=== PATIENT | female | born 1945 | race Hispanic/Latino ===

== ENCOUNTER 2019-05-04 06:44 | Emergency (ER) | payer MEDICARE ==
[~2019-05-04] VITALS: Ht 149.9 cm; Wt 72.1 kg
[~2019-05-04 06:44] MED LIST: ASPIR 8181 MG; ATELVIA35 MG PO; ATORVASTATIN CA20 MG PO; CEFDINIR300 MG PO; FAMOTIDINE20 MG PO; FLAGYL500 MG PO; LANTUS100 UNITS/ SQ; LOVENOX40 MG/0.4 SC; METOCLOPRAMIDE10 MG PO; NORCO 7.5-3251 EACH PO; ULTRAM 50MG50 MG PO; ULTRAM50 MG PO; VITAMIN D250000 UNIT PO; Z.0.DIOVAN160 MG PO; Z.0.GLIPIZIDE10 MG PO; Z.0.NEXIUM40 MG PO; Z.0.PLAQUENIL200 MG PO; [UNRECOGNIZED DRUG - OTHER] PO
--- OUTSIDE RECORDS SUMMARY | 2019-05-04 06:48 | XMS REPORT ---
Author Author [facility] Address Unknown Phone Unavailable Care Team Providers Care Servicing Manager Name Role Phone Brendon JENSEN Unavailable Unavailable Problems This patient has no known problems. Allergies, Adverse Reactions, Alerts This patient has no known allergies or adverse reactions. Medications This patient has no known medications. Results Test Description Test Time Test Comments Text Results Atomic Results Result Comments CHEST SINGLE (PORTABLE) [place] [address] Patient Name: JIHAN DENNIS MR #: [id number] : 1945 Age/Sex: 72/F Req #: [id number] Adm Physician: Ordered by: MARI MAYES PICKER OPERATOR Report #: [id number] Location: ER Room/Bed: Procedure: [id number] DX/CHEST SINGLE (PORTABLE) Exam Date: 09/15/17 Exam Time: 1500 REPORT STATUS: Signed PROCEDURE: CHEST SINGLE (PORTABLE) COMPARISON: 05/10/2016. INDICATIONS: NAUSEA, STOMACH PAIN TODAY FINDINGS: Lungs are well- inflated. No focal consolidation, pleural effusion, or pneumothorax. Cardiomediastinal contour and pulmonary vasculature are within normal limits for portable, AP technique. No acute osseous abnormality. Bilateral acromioclavicular degenerative joint disease. CONCLUSION: No acute cardiopulmonary abnormality. Dictated by: Pastor Abbott M.D. on 09/15/2017 at 15:20 Electronically approved by: Pastor Abbott M.D. on 09/15/2017 at 15:20 Dictated By: PASTOR ABBOTT MD 1520 Transcribed By: CHEYENNE on 09/15/17 1520 COPY TO: MARI MAYES NP CT ABDOMEN/PELVIS WO [place] [address] Patient Name: JIHAN DENNIS MR #: [id number] : 1945 Age/Sex: 72/F Req #: [id number] Adm Physician: Ordered by: MARI MAYES NP Report #: [id number] Location: ER Room/Bed: Procedure: [id number] CT/CT ABDOMEN/PELVIS WO Exam Date: 09/15/17 Exam Time: 1500 REPORT STATUS: Signed PROCEDURE: CT ABDOMEN AND PELVIS WITHOUT CONTRAST TECHNIQUE: The abdomen and pelvis were scanned utilizing a multidetector helical scanner from the diaphragm to the lesser trochanter after the oral administration of Gastroview. No intravenous contrast was administered per referring physician request. Coronal and sagittal multiplanar reformations were obtained. COMPARISON: CT abdomen and pelvis with contrast 05/10/2016 INDICATIONS: stomach pain, nausea, vomitting FINDINGS: ABSENCE OF INTRAVENOUS CONTRAST DECREASES SENSITIVITY FOR DETECTION OF FOCAL LESIONS AND VASCULAR PATHOLOGY. LOWER THORAX: 3 mm juxtapleural nodule in the right middle lobe is unchanged dating to 05/10/2016. Otherwise unremarkable. Coronary artery calcifications.. HEPATOBILIARY: Calcified granuloma in segment 4A near the dome. Otherwise no focal hepatic lesion. No intrahepatic biliary ductal dilatation. Status post cholecystectomy. SPLEEN: No splenomegaly. PANCREAS: No focal masses or ductal dilatation. ADRENALS: No adrenal nodules. KIDNEYS/URETERS: No hydronephrosis, stones, or solid mass lesions. PELVIC ORGANS/BLADDER: Urinary bladder is unremarkable. No adnexal mass. PERITONEUM / RETROPERITONEUM: No free air or fluid. LYMPH NODES: No pelvic side wall, retroperitoneal, or mesenteric lymphadenopathy. VESSELS: Atherosclerotic calcification of the abdominal aorta, branch vessels, and iliac arterial systems without aneurysmal dilatation. Otherwise limited evaluation in the absence of intravenous contrast. GI TRACT: The large bowel shows no evidence of distention or wall thickening. Gas and fecal material is noted throughout. The appendix is not identified and may have been removed. Mild wall thickening of the gastric antrum is again noted, similar to that seen on 05/10/2016. There is no small bowel dilatation to suggest obstruction. BONES AND SOFT TISSUES: Postsurgical changes of the anterior bowel wall. No focal soft tissue abnormalities otherwise. Multilevel degenerative disc changes of the lumbar spine. Degenerative joint disease of the hips. IMPRESSION: Mild thickening of the gastric antral wall is similar to that noted on 05/10/2016 and may indicate gastritis in the correct clinical setting. Otherwise no acute intra-abdominal or pelvic CT abnormality. Atherosclerotic vascular disease. Dictated by: Pastor Abbott M.D. on 09/15/2017 at 15:37 Electronically approved by: Pastor Abbott M.D. on 09/15/2017 at 15:37 Dictated By: PASTOR ABBOTT MD 1537 Transcribed By: CHEYENNE on 09/15/17 1537 COPY TO: MARI MAYES NP
[2019-05-04] MEDS ORDERED: KETOROLAC TROMETHAMINE 60 MG/2 ML VIAL IM ONE (07:30)
[2019-05-04] MEDS ORDERED: DIAZEPAM 5 MG TAB PO ONE (07:30)
--- NOTE | 2019-05-04 09:25 | Diagnostic Imaging Report ---
Exam: Head CT without contrast History: Headache Comparison studies: None Technique: Axial images were obtained from the skull base to the vertex. Coronal and sagittal images reconstructed from the axial data. Dose modulation, iterative reconstruction, and/or weight based adjustment of the mA/kV was utilized to reduce the radiation dose to as low as reasonably achievable. Radiation dose: Total DLP: 921 mGy*cm. Estimated effective dose: DLP x 0.015 Intravenous contrast: None Findings: Scalp: No abnormalities. Bones: No fractures, blastic or lytic lesions. Brain sulci: Appropriate for age. Ventricles: Mild compensatory dilatation.. No hydrocephalus. Extra-axial spaces: No masses, no fluid collection. Parenchyma: No mass, acute hemorrhage or acute cortical vascular insults. A few scattered hypodensities in the supratentorial white matter are nonspecific but most compatible with chronic small vessel ischemic changes. Sellar/suprasellar region: No abnormalities. Craniocervical junction: Patent foramen magnum. No Chiari one malformation. Incidental findings: Lens replacement for previous cataract surgery. Atherosclerotic calcifications in the carotid siphons. IMPRESSION: 1. No acute intracranial abnormalities. 2. Mild chronic microvascular ischemic changes. Signed by: Dr. Yoshi Robbins M.D. on 05/04/2019 9:22 AM
[2019-05-04 09:45] VITALS: BP 114/50
== END 2019-05-04 09:52 | disposition home or self-care (01) ==
LOC: ER 06:44
DX: G44.211 Episodic tension-type headache, intractable (principal); E11.9 Type 2 diabetes mellitus without complications; E78.5 Hyperlipidemia, unspecified; K21.9 Gastro-esophageal reflux disease without esophagitis
CPT/HCPCS: 36415; 70450; 82948; 93005; 99284; J1885

== ENCOUNTER 2019-08-22 21:03 | Emergency (ER) | payer MEDICARE ==
[~2019-08-22] VITALS: Ht 149.9 cm; Wt 72.1 kg
[2019-08-22] MEDS ORDERED: SODIUM CHLORIDE 0.9% 1000ML 1,000 ML IV STA (21:37)
[2019-08-22] MEDS ORDERED: KETOROLAC TROMETHAMINE 30 MG/ML VIAL IV STA (21:37)
[2019-08-22] MEDS ORDERED: DIAZEPAM 5 MG TAB PO ONE (21:45)
[2019-08-22 21:50] LABS: BASOPHILS % 0.3 % (0.0-1.0); EOSINOPHILS # (AUTO) 0.1 (0.0-0.4); EOSINOPHILS % 1.2 % (0.0-6.0); HEMOGLOBIN 13.5 g/dL (12.0-16.0); LYMPHOCYTES # (AUTO) 2.5 (1.0-3.2); LYMPHOCYTES % 38.2 % (18.0-39.1); MEAN CORPUSCULAR HEMOGLOBIN 31.6 pg (28-32); MEAN CORPUSCULAR HGB CONC 33.8 g/dL (31-35); MEAN CORPUSCULAR VOLUME 93.7 fL (81-99); MONOCYTES # (AUTO) 0.5 (0.2-0.8); MONOCYTES % 7.7 % (4.4-11.3); NEUTROPHILS # (AUTO) 3.4 (2.1-6.9); NEUTROPHILS % 52.3 % (38.7-80.0); PLATELET COUNT 213 x10e3/uL (140-360); RED BLOOD COUNT 4.27 x10e6/uL (3.6-5.1); RED CELL DISTRIBUTION WIDTH 12.4 % (11.7-14.4)
[2019-08-22 21:58] LABS: INR 0.88; PROTHROMBIN TIME 12.4 seconds (11.9-14.5)
[2019-08-22 21:59] LABS: PARTIAL THROMBOPLASTIN TIME 28.1 seconds (23.8-35.5)
[2019-08-22 22:08] LABS: CLARITY,URINE CLEAR (CLEAR); COLOR,URINE YELLOW (YELLOW)
[2019-08-22 22:09] LABS: BACTERIA,URINE MODERATE /HPF; BILIRUBIN,URINE NEGATIVE (NEGATIVE); KETONES,URINE NEGATIVE (NEGATIVE); LEUKOCYTE ESTERASE ,URINE TRACE (NEGATIVE); NITRITE,URINE NEGATIVE (NEGATIVE); PROTEIN,URINE DIPSTICK NEGATIVE (NEGATIVE); URINE UROBILINOGEN 0.2 mg/dL (0.2 - 1); WBC,URINE (MAN) 0-5 /HPF (0-5)
[2019-08-22 22:09] LABS: ALBUMIN/GLOBULIN RATIO 1.2 (0.8-2.0); ANION GAP 11.8 mmol/L (8-16); CALCIUM 9.6 mg/dL (8.4-10.2); CREATININE, SERUM 0.94 mg/dL (0.57-1.11); POTASSIUM 3.8 mmol/L (3.5-5.1)
[2019-08-22 22:10] LABS: EPITHELIAL CELLS,URINE FEW /LPF
[2019-08-22 22:43] VITALS: BP 152/61
== END 2019-08-22 22:48 | disposition home or self-care (01) ==
LOC: ER 21:03
DX: G44.211 Episodic tension-type headache, intractable (principal); R42 Dizziness and giddiness
CPT/HCPCS: 36415; 80053; 81001; 82550; 82553; 84484; 85025; 85610; 85730; 87086; 93005; 96374; 99283; J1885; J7030

== ENCOUNTER 2020-05-19 10:09 | Emergency (ER) | payer MEDICARE ==
[~2020-05-19] VITALS: Ht 149.9 cm; Wt 72.1 kg
[2020-05-19 10:48] LABS: BASOPHILS % 0.2 % (0.0-1.0); EOSINOPHILS % 0.2 % (0.0-6.0); HEMATOCRIT 34.9 % (34.2-44.1); HEMOGLOBIN 11.5 g/dL (12.0-16.0); LYMPHOCYTES # (AUTO) 0.7 (1.0-3.2); LYMPHOCYTES % 12.5 % (18.0-39.1); MEAN CORPUSCULAR HEMOGLOBIN 30.4 pg (28-32); MEAN CORPUSCULAR VOLUME 92.3 fL (81-99); MONOCYTES # (AUTO) 0.4 (0.2-0.8); MONOCYTES % 6.8 % (4.4-11.3); NEUTROPHILS # (AUTO) 4.7 (2.1-6.9); NEUTROPHILS % 79.6 % (38.7-80.0); PLATELET COUNT 246 x10e3/uL (140-360); RED BLOOD COUNT 3.78 x10e6/uL (3.6-5.1); RED CELL DISTRIBUTION WIDTH 12.2 % (11.7-14.4)
[2020-05-19 10:56] LABS: CLARITY,URINE CLEAR (CLEAR); COLOR,URINE YELLOW (YELLOW); LEUKOCYTE ESTERASE ,URINE TRACE (NEGATIVE); NITRITE,URINE NEGATIVE (NEGATIVE); PROTEIN,URINE DIPSTICK NEGATIVE (NEGATIVE)
[2020-05-19 10:57] LABS: BILIRUBIN,URINE NEGATIVE (NEGATIVE); KETONES,URINE NEGATIVE (NEGATIVE); URINE UROBILINOGEN 2 mg/dL (0.2 - 1)
--- NOTE | 2020-05-19 11:02 | Emergency Department Note ---
History of Present Illnes History of Present Illness Chief Complaint: General Medicine Complaints History of Present Illness This is a 75 year old female arrives to the ED with complaints of dizziness for several weeks. Patient states she feels unsteady on her feet. Patient states the symptoms happen from time to time. 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 Any updates have been documented here. Past Medical History Recent Fever: No Clinical Suspicion of Infectio: No New/Unexplained Change in Ment: No Past Medical History: Diabetes, GERD, Hyperlipedemia Other Medical History: GERD Past Surgical History: Cholecysctectomy, Appendectomy Other Surgery: HERNIA Other Last Tetanus: UNKNOWN Review of Systems Review of Systems Constitutional: Reports as per HPI, Reports weakness EENTM: Reports no symptoms Cardiovascular: Reports no symptoms Respiratory: Reports no symptoms Gastrointestinal: Reports no symptoms Genitourinary: Reports no symptoms Musculoskeletal: Reports no symptoms Integumentary: Reports no symptoms Neurological: Reports no symptoms Psychological: Reports no symptoms Endocrine: Reports no symptoms Hematological/Lymphatic: Reports no symptoms Physical Exam Related Data Allergies: Coded Allergies: No Known Allergies (Unverified , 09/15/17) Triage Vital Signs Vital Signs Date Time Temp Pulse Resp B/P (MAP) Pulse Ox O2 Delivery O2 Flow Rate FiO2 05/19/20 10:14 98.4 77 18 159/58 98 Room Air Vital signs reviewed: Yes Physical Exam CONSTITUTIONAL Constitutional: Present well-developed, Present well-nourished HENT HENT: Present normocephalic, Present atraumatic, Present oropharynx clear/moist, Present nose normal HENT L/R: Present left ext ear normal, Present right ext ear normal EYES Eyes: Reports PERRL, Reports conjunctivae normal NECK Neck: Present ROM normal PULMONARY Pulmonary: Present effort normal, Present breath sounds normal CARDIOVASCULAR Cardiovascular: Present regular rhythm, Present heart sounds normal, Present capillary refill normal, Present normal rate GASTROINTESTINAL Abdominal: Present soft, Present nontender, Present bowel sounds normal GENITOURINARY Genitourinary: Present exam deferred SKIN Skin: Present warm, Present dry MUSCULOSKELETAL Musculoskeletal: Present ROM normal NEUROLOGICAL Neurological: Present alert, Present oriented x 3, Present no gross motor or sensory deficits PSYCHOLOGICAL Psychological: Present mood/affect normal, Present judgement normal Results Laboratory Lab results reviewed: Yes Laboratory comments Laboratory Tests Test 05/19/20 10:35 05/19/20 10:21 White Blood Count 5.84 x10e3/uL (4.8-10.8) Red Blood Count 3.78 x10e6/uL (3.6-5.1) Hemoglobin 11.5 g/dL (12.0-16.0) Hematocrit 34.9 % (34.2-44.1) Mean Corpuscular Volume 92.3 fL (81-99) Mean Corpuscular Hemoglobin 30.4 pg (28-32) Mean Corpuscular Hemoglobin Concent 33.0 g/dL (31-35) Red Cell Distribution Width 12.2 % (11.7-14.4) Platelet Count 246 x10e3/uL (140-360) Neutrophils (%) (Auto) 79.6 % (38.7-80.0) Lymphocytes (%) (Auto) 12.5 % (18.0-39.1) Monocytes (%) (Auto) 6.8 % (4.4-11.3) Eosinophils (%) (Auto) 0.2 % (0.0-6.0) Basophils (%) (Auto) 0.2 % (0.0-1.0) Neutrophils # (Auto) 4.7 (2.1-6.9) Lymphocytes # (Auto) 0.7 (1.0-3.2) Monocytes # (Auto) 0.4 (0.2-0.8) Eosinophils # (Auto) 0.0 (0.0-0.4) Basophils # (Auto) 0.0 (0.0-0.1) Absolute Immature Granulocyte (auto 0.04 x10e3/uL (0-0.1) Sodium Level 139 mmol/L (136-145) Potassium Level 4.2 mmol/L (3.5-5.1) Chloride Level 105 mmol/L (98-107) Carbon Dioxide Level 23 mmol/L (22-29) Anion Gap 15.2 mmol/L (8-16) Blood Urea Nitrogen 12 mg/dL (7-26) Creatinine 0.72 mg/dL (0.57-1.11) Estimat Glomerular Filtration Rate > 60 ML/MIN (60-) BUN/Creatinine Ratio 17 (6-25) Glucose Level 138 mg/dL (74-118) Calcium Level 8.8 mg/dL (8.4-10.2) Total Bilirubin 0.5 mg/dL (0.2-1.2) Aspartate Amino Transf (AST/SGOT) 21 IU/L (5-34) Alanine Aminotransferase (ALT/SGPT) 21 IU/L (0-55) Alkaline Phosphatase 61 IU/L (40-150) Creatine Kinase 75 IU/L (29-168) Creatine Kinase MB 1.10 ng/mL (0-5.0) Troponin I 0.004 ng/mL (0-0.300) Total Protein 7.3 g/dL (6.5-8.1) Albumin 2.7 g/dL (3.5-5.0) Globulin 4.6 g/dL (2.3-3.5) Albumin/Globulin Ratio 0.6 (0.8-2.0) Urine Color Yellow (YELLOW) Urine Clarity Clear (CLEAR) Urine pH 7 (5 - 7) Urine Specific [place] 1.015 (1.010-1.025) Urine Protein Negative (NEGATIVE) Urine Glucose (UA) Negative (NEGATIVE) Urine Ketones Negative (NEGATIVE) Urine Blood Negative (NEGATIVE) Urine Nitrite Negative (NEGATIVE) Urine Bilirubin Negative (NEGATIVE) Urine Urobilinogen 2 mg/dL (0.2 - 1) Urine Leukocyte Esterase Trace (NEGATIVE) Urine RBC 0-5 /HPF (0-5) Urine WBC 11-20 /HPF (0-5) Urine Epithelial Cells Moderate /LPF (NONE) Urine Bacteria Moderate /HPF (NONE) Imaging Imaging results reviewed: Yes Impressions IMPRESSION: Head CT: 1. No acute intracranial abnormalities. 2. Mild chronic microvascular ischemic changes. 3. No changes from the prior head CT of 05/04/2019. Intracranial CTA: 1. No major intracranial arterial branch occlusion or stenosis. 2. Calcified atherosclerosis in the carotid siphons without significant stenosis. Signed by: Dr. Yoshi Robbins M.D. on 05/19/2020 12:31 PM IMPRESSION: Bibasilar predominantly peripheral hazy opacities can be seen with viral pneumonia. Assessment & Plan Medical Decision Making MDM 75-year-old well-appearing female arrived to the ED with complaints of dizziness and generalized malaise. Patient received a CT angiogram of her brain to ensure there is no posterior cerebellar infarct. Patient is ambulatory with steady gait. CTA normal. Patient's chest x-ray concerning for bilateral lower lobe opacities that may be pneumonia, in the setting of the Covid19 pandemic patient is a high suspicion for Covid 19. In the light of the Covid pandemic, disaster medicine care was given- Patient's imaging reviewed,- chest x-ray shows questionable patchy airspace opacities . Patient clinically appears well, outpatient pulmonary follow-up given. The red flags for return to emergency department given. Patient understands the emergency department is open at all times to serve his needs as well as the needs of the community and given that he requires no supplemental oxygen and is speaking in full sentences with no distress he is stable to go home and quarantine. Assessment & Plan Final Impression: (1) COVID-19 (2) Dizziness Depart Disposition: HOME, SELF-CARE Last Vital Signs Date Time Temp Pulse Resp B/P (MAP) Pulse Ox O2 Delivery O2 Flow Rate FiO2 05/19/20 10:14 98.4 77 18 159/58 98 Room Air Home Meds Reported Medications Tramadol Hcl (ULTRAM) 50 Mg Tablet, 50 MG PO Q6H PRN for ABDOMINAL PAIN, #12 TAB 05/23/16 Tramadol Hcl* (ULTRAM 50MG*) 50 Mg Tab, 50 MG PO, TAB 02/29/16 Insulin Glargine (LANTUS) 100 Units/Ml Ml, 8 UNIT SQ AM 11/23/14 Insulin Glargine (LANTUS) 100 Units/Ml Ml, 15 UNIT SQ PM 11/23/14 Glipizide (Glipizide) 10 Mg Tablet, 10 MG PO BID HOLD X 48 HRS 04/02/12 LAURYN MAYFIELD DO May 19, 2020 11:02
[2020-05-19 11:07] LABS: BACTERIA,URINE MODERATE /HPF; EPITHELIAL CELLS,URINE MODERATE /LPF; RBC,URINE 0-5 /HPF (0-5)
[2020-05-19 11:11] LABS: ALANINE AMINOTRANSFERASE 21 IU/L (0-55); ALBUMIN 2.7 g/dL (3.5-5.0); ALBUMIN/GLOBULIN RATIO 0.6 (0.8-2.0); ALKALINE PHOSPHATASE 61 IU/L (40-150); ANION GAP 15.2 mmol/L (8-16); BLOOD UREA NITROGEN 12 mg/dL (7-26); BUN/CREATININE RATIO 17 (6-25); CALCIUM 8.8 mg/dL (8.4-10.2); CARBON DIOXIDE 23 mmol/L (22-29); CHLORIDE 105 mmol/L (98-107); CREATINE KINASE 75 IU/L (29-168); CREATININE, SERUM 0.72 mg/dL (0.57-1.11); EST GLOMERULAR FILTRATION RATE > 60 ML/MIN (60-); GLUCOSE 138 mg/dL (74-118); POTASSIUM 4.2 mmol/L (3.5-5.1); SODIUM 139 mmol/L (136-145)
--- NOTE | 2020-05-19 11:15 | Diagnostic Imaging Report ---
EXAMINATION: CHEST SINGLE (PORTABLE) INDICATION: Dizziness, cough, weakness COMPARISON: None FINDINGS: LINES/TUBES:EKG leads overlie the chest. LUNGS:The lungs are moderately inflated. Bibasilar predominant peripheral hazy opacities. PLEURA:No pleural effusion or pneumothorax. MEDIASTINUM:The cardiomediastinal silhouette appears normal in size and shape. BONES/SOFT TISSUES:No acute osseous injury. ABDOMEN:No free air under the diaphragm. IMPRESSION: Bibasilar predominantly peripheral hazy opacities can be seen with viral pneumonia. Signed by: Laisha Seymour MD on 05/19/2020 11:12 AM
--- NOTE | 2020-05-19 12:35 | Diagnostic Imaging Report ---
History: Weakness, dizziness, Comparison studies: Head CT 05/04/2019. Technique: Axial images were obtained from the skull base to the vertex prior to and following administration of IV contrast. Multiplanar MIP and 3-D volume rendered images of the [place] of [place] were reformatted from the postcontrast axial source data. Radiation statement Intravenous contrast: 100 cc of Omnipaque 300. Findings: Head CT: Scalp: No abnormalities. Bones: No fractures, blastic or lytic lesions. Brain sulci: Appropriate for age. Ventricles: Mild compensatory dilatation. No hydrocephalus. Extra-axial spaces: No masses, no fluid collection. Parenchyma: No mass, acute hemorrhage or acute cortical vascular insults. A few scattered hypodensities in the supratentorial white matter are nonspecific but most compatible with chronic small vessel ischemic changes. Sellar/suprasellar region: No abnormalities. Craniocervical junction: Patent foramen magnum. No Chiari one malformation. Incidental findings: Lens replacement for previous cataract surgery. Atherosclerotic calcifications in the carotid siphons. Chronic inflammatory changes in the right maxillary sinus which is partially opacified with mucosal thickening and peripheral reactive osteitis. Cranial CTA: No arterial vascular malformation identified. Anterior circulation: Internal carotid arteries: Patent with scattered calcified plaque in the bilateral cavernous and paraophthalmic segments which do not result in significant stenosis. There is approximately 2.5 mm infundibular dilatation at the left posterior communicating artery origin. Anterior cerebral arteries: Patent, no proximal branch occlusion or stenosis. Middle cerebral arteries: Patent, no proximal branch occlusion or stenosis. Posterior circulation: Vertebral arteries: Patent, no abnormalities. Basilar artery: Patent, no abnormalities. Posterior cerebral arteries: Patent, no proximal branch occlusion or stenosis. Anatomical variants: Anterior communicating artery :Present Posterior communicating arteries: Hypoplastic bilaterally. Vertebral arteries: Dominant left vertebral artery IMPRESSION: Head CT: 1. No acute intracranial abnormalities. 2. Mild chronic microvascular ischemic changes. 3. No changes from the prior head CT of 05/04/2019. Intracranial CTA: 1. No major intracranial arterial branch occlusion or stenosis. 2. Calcified atherosclerosis in the carotid siphons without significant stenosis. Signed by: Dr. Yoshi Robbins M.D. on 05/19/2020 12:31 PM
[2020-05-19] MEDS ORDERED: DECADRON6 MG PO (12:42)
[2020-05-19] MEDS ORDERED: AZITHROMYCIN250 MG PO (12:42)
[2020-05-19] MEDS ORDERED: SODIUM CHLORIDE 0.9% 100 ML ONE (14:22)
[2020-05-19] MEDS ORDERED: IOPAMIDOL 370 MG/ML 200 ML INFUS..BTL INJ ONE (14:22)
== END 2020-05-19 14:03 | disposition home or self-care (01) ==
LOC: ER 12:15
DX: U07.1 COVID-19 (principal); R42 Dizziness and giddiness; E11.65 Type 2 diabetes mellitus with hyperglycemia; E78.5 Hyperlipidemia, unspecified; K21.9 Gastro-esophageal reflux disease without esophagitis
CPT/HCPCS: 36415; 70496; 71045; 80053; 81001; 82550; 82553; 84484; 85025; 93005; 99285; J7050; Q9967

== ENCOUNTER 2021-06-04 11:49 | Emergency (ER) | payer MEDICARE, OTHER ==
[~2021-06-04] VITALS: Ht 149.9 cm; Wt 72.1 kg
[~2021-06-04 11:49] MED LIST changes: +AZITHROMYCIN250 MG PO; +DECADRON6 MG PO
== END 2021-06-04 16:24 | disposition home or self-care (01) ==
LOC: ER 11:56
DX: S00.83XA Contusion of other part of head, initial encounter (principal); S39.012A Strain of muscle, fascia and tendon of lower back, initial encounter; W01.0XXA Fall on same level from slipping, tripping and stumbling without subsequent striking against object, initial encounter; Y93.01 Activity, walking, marching and hiking; E11.9 Type 2 diabetes mellitus without complications; K21.9 Gastro-esophageal reflux disease without esophagitis; E78.5 Hyperlipidemia, unspecified
CPT/HCPCS: 70450; 72125; 72170; 99283

== ENCOUNTER 2022-08-07 12:43 | Emergency (ER) | payer MEDICARE, OTHER ==
[~2022-08-07] VITALS: Ht 149.9 cm; Wt 72.1 kg
[2022-08-07] MEDS ORDERED: ACETAMINOPHEN 325 MG TAB PO ONE (15:30)
[2022-08-07 16:50] VITALS: BP 145/84
== END 2022-08-07 16:45 | disposition home or self-care (01) ==
LOC: ER 12:54
DX: S00.83XA Contusion of other part of head, initial encounter (principal); S20.213A Contusion of bilateral front wall of thorax, initial encounter; S80.02XA Contusion of left knee, initial encounter; S80.01XA Contusion of right knee, initial encounter; S90.01XA Contusion of right ankle, initial encounter; W01.0XXA Fall on same level from slipping, tripping and stumbling without subsequent striking against object, initial encounter; Y93.01 Activity, walking, marching and hiking; Y92.89 Other specified places as the place of occurrence of the external cause; E11.9 Type 2 diabetes mellitus without complications; E78.5 Hyperlipidemia, unspecified; K21.9 Gastro-esophageal reflux disease without esophagitis
CPT/HCPCS: 70450; 70486; 71045; 72125; 72192; 99284